=== PATIENT | female | born 1985 | race Caucasian/White ===

== ENCOUNTER → 2021-03-21 11:01 | Outpatient (CLI) | payer BC, SELFPAY ==
--- NOTE | ~2021-03-21 | XR_ITS ---
XR sacroiliac joints min 3V DATE: 03/21/2021 11:41 INDICATION: Psoriasis. Chronic bilateral hip pain. TECHNIQUE: Frontal and bilateral oblique views of the sacroiliac joints COMPARISON: None FINDINGS: No fracture or dislocation, erosive change or ankylosis. IMPRESSION: Negative sacroiliac joints Reviewed, dictated and finalized at [facility]. Reviewed, dictated and finalized at location [facility]. IMPRESSION: Negative sacroiliac joints
--- NOTE | ~2021-03-21 | XR_ITS ---
XR hand RT 2V DATE: 03/21/2021 11:42 INDICATION: Psoriasis, arthralgia TECHNIQUE: 3 views COMPARISON: None FINDINGS: No fracture or dislocation, periosteal reaction or bone destruction, erosive change or ghulam drocalcinosis. IMPRESSION: Negative Reviewed, dictated and finalized at location [facility]. IMPRESSION: Negative
--- NOTE | ~2021-03-21 | XR_ITS ---
XR hand LT 2V DATE: 03/21/2021 11:42 INDICATION: Psoriasis, arthralgia TECHNIQUE: AP, lateral, oblique views COMPARISON: None FINDINGS: No fracture or dislocation, periosteal reaction or bone destruction or erosive change. IMPRESSION: No significant abnormality Reviewed, dictated and finalized at location [facility]. IMPRESSION: No significant abnormality
--- NOTE | ~2021-03-21 | XR_ITS ---
XR knee LT 3V DATE: 03/21/2021 11:41 INDICATION: Psoriasis, arthralgia TECHNIQUE: AP, lateral, sunrise views COMPARISON: None FINDINGS: There is mild to moderate loss of medial compartment joint space. No fracture or dislocation or joint effusion, periosteal reaction or bone destruction, radiopaque int ra-articular loose body or, calcinosis. IMPRESSION: Mild to moderate loss of medial compartment joint space Reviewed, dictated and finalized at location A.
--- NOTE | ~2021-03-21 | XR_ITS ---
XR knee RT 3V DATE: 03/21/2021 11:42 INDICATION: Psoriasis, arthralgia TECHNIQUE: AP, lateral, sunrise views COMPARISON: None FINDINGS: No fracture or dislocation or joint effusion. No periosteal reaction or bone destruction, r adiopaque interarticular loose body or chondrocalcinosis. Joint spaces are relatively preserved. IMPRESSION: Negative Reviewed, dictated and finalized at location A. IMPRESSION: Negative
== END ==
PROVIDERS: Visit Provider Pediatrics Pediatric Rheumatology
DX: L40.9 Psoriasis, unspecified (principal); M25.50 Pain in unspecified joint; M54.50 Low back pain, unspecified; G89.29 Other chronic pain
CPT/HCPCS: 72202; 73120; 73562

== ENCOUNTER 2023-06-16 09:40 | Outpatient (CLI) | payer BC, SELFPAY ==
--- NOTE | ~2023-06-16 | US_ITS ---
EXAMINATION: US OB <=14 wk fetus w TV DATE: 06/16/2023 11:24 INDICATION: Establish dating of during first trimester TECHNIQUE: Real-time pelvic ultrasound utilizing both a transvaginal and transabdominal probe was pe rformed. The interpreting radiologist was not present for the study. COMPARISON: None. FINDINGS: The uterus measures 10.5 x 5.2 x 6.4 cm. There is an intrauterine gestational sac. A yolk sac and fe kristine pole are identified. The crown rump length measures 3.6 mm, which correlates with an estimated ge stational age of 6 weeks and 0 days. heart motion is identified measuring 120 beats per minute (bpm) by M-mode Doppler. The right ovary measures 2.6 x 2.6 x 2.1 cm. The left ovary measures 2.3 x 1.1 x 2.0 cm. Vascular dayanna w identified in both ovaries on color Doppler. There is no free fluid in the pelvis. IMPRESSION: 1. Single living fetus with heart rate of 120 bpm. 2. Gestational age by ultrasound of 6 weeks 0 day(s) +/- 4 day(s) with ultrasound estimated date of delivery (TAMAR) of 02/09/2024. Reviewed, dictated and finalized at location A. TECH IMPRESSION: 1. Single living fetus with heart rate of 120 bpm. 2. Gestational age by ultrasound of 6 weeks 0 day(s) +/- 4 day(s) with ultraso und estimated date of delivery (TAMAR) of 02/09/2024.
== END 2023-06-16 09:41 | disposition home or self-care (01) ==
LOC: ANHIMG 09:42
PROVIDERS: Visit Provider Obstetrics & Gynecology
DX: O26.841 Uterine size-date discrepancy, first trimester (principal); Z3A.00 Weeks of gestation of pregnancy not specified
CPT/HCPCS: 76801; 76817

== ENCOUNTER 2023-06-25 09:21 | Emergency (ER) | payer BC, SELFPAY ==
[2023-06-25 09:29] VITALS: BP 97/63; PULSE 78; RESP 18; TEMP 36.5; O2SAT 100
--- NOTE | 2023-06-25 09:40 | ED.URI ---
HPI - URI/Sore Throat General Chief Complaint: Upper Respiratory Infection Stated Complaint: FEVER/COUGH/SOB/7 WEEKS Time Seen by Provider: 06/25/23 09:40 Source: patient Mode of arrival: ambulatory Limitations: no limitations History of Present Illness HPI Narrative: 37-year-old female presents with complaint of fever, cough, fatigue, headache and body aches starting last night. Patient taking Tylenol to treat pain and fever. Patient reports that her son has had similar symptoms for the past 3-4 days. Patient states she is taking him for strep and flu swabs at noon today in a different urgent care. Patient is 7 weeks . Taking her vitamin. No complaints of abdominal cramping or vaginal bleeding. Has not had appointment with OBGYN. All systems reviewed and negative except as noted above. Related Data Home Medications Medication Instructions Recorded Confirmed mv-mn no.97-folic 180 mcg-dha 25 tablet PO 06/25/23 mg-herb no.293 25 mg chewable tablet (Alive Daily Support ) Allergies Allergy/AdvReac Type Severity Reaction Status Date / Time No Known Allergies Allergy Unverified 11/25/17 13:23 Review of Systems Review of Systems: CONSTITUTIONAL: Reports fever, chills, fatigue EYES: Denies visual changes, redness, or discharge. ENT: reports rhinorrhea, congestion, sore throat. Denies otalgia. CARDIOVASCULAR: Denies chest pain, palpitations, or edema. RESPIRATORY: reports cough. Denies dyspnea. GASTROINTESTINAL: Denies abdominal pain, nausea, vomiting, or diarrhea. GENITOURINARY: Denies dysuria or hematuria. SKIN: Denies rash or itching. MUSCULOSKELETAL: Denies back pain, joint pain. Reports myalgia. NEUROLOGIC: Denies headache, numbness, or weakness. PSYCHIATRIC: Denies anxiety or depression. All other systems reviewed are negative, except as documented in HPI. PMFSH Social History Social History Smoking status: Current every day smoker Alcohol intake: current Comments At time of signature, agree with nursing past medical, surgical, social and family history. There is no relevant family history pertinent to the presenting complaint. Exam Narrative: GENERAL: This is a well-nourished, well-developed patient, in no apparent distress. HEAD: normocephalic, atraumatic. EYES: PERRL. Sclera clear/white. Vision is grossly intact. EARS: External ears normal, auditory canals clear and without drainage, TMs normal without perforation. Hearing grossly intact. NOSE: External nose normal with mild erythema without redness or swelling to nares. THROAT: Mucous membranes moist, posterior pharynx clear. NECK: Neck supple, non-tender without lymphadenopathy, masses or thyromegaly. CARDIOVASCULAR: Regular rate and rhythm without murmurs, gallops, or rubs. RESPIRATORY: Clear to auscultation. Breath sounds equal bilaterally. No wheezes, rales, or rhonchi. SKIN: warm, Dry, intact with no suspicious lesions or rash, good texture and turgor. NEURO: awake, alert, and oriented to person, place and time. There were no obvious focal neurologic abnormalities. EXTREMITIES: No joint tenderness, effusion, or edema noted. Course Course Level of Care: Express Care Visit Vital Signs Vital signs: Vital Signs Temperature 36.5 C 06/25/23 09:29 Pulse Rate 78 06/25/23 09:29 Respiratory Rate 18 06/25/23 09:29 Blood Pressure 97/63 L 06/25/23 09:29 Pulse Oximetry 100 06/25/23 09:29 Oxygen Delivery Room Air 06/25/23 09:29 Temperature 36.5 C 06/25/23 09:29 Pulse Rate 78 06/25/23 09:29 Respiratory Rate 18 06/25/23 09:29 Blood Pressure 97/63 L 06/25/23 09:29 Pulse Oximetry 100 06/25/23 09:29 Oxygen Delivery Room Air 06/25/23 09:29 Reviewed MDM - URI/Sore Throat MDM Narrative Medical decision making narrative: negative COVID and influenza test today. Recommend patient recheck with COVID home test in 48 hours if she is co
== END 2023-06-25 10:09 | disposition home or self-care (01) ==
PROVIDERS: Emergency Provider Nurse Practitioner Family; PCP Internal Medicine
DX: O99.511 Diseases of the respiratory system complicating pregnancy, first trimester (principal); Z3A.01 Less than 8 weeks gestation of pregnancy; J06.9 Acute upper respiratory infection, unspecified; Z20.822 Contact with and (suspected) exposure to COVID-19; O99.330 Smoking (tobacco) complicating pregnancy, unspecified trimester
CPT/HCPCS: 87426; 87804; 99213; G0463

== ENCOUNTER 2023-12-12 12:35 | Outpatient (RCR) | payer BC, SELFPAY ==
[2023-12-13] MEDS: RHO(D) IMMUNE GLOBULIN 300 MCG/2 ML SYRINGE IM (14:11)
== END 2024-03-11 23:59 | disposition home or self-care (01) ==
LOC: ANHLAB 12:35
PROVIDERS: PCP Internal Medicine; Visit Provider Obstetrics & Gynecology
DX: Z29.13 Encounter for prophylactic Rho(D) immune globulin (principal); O36.0190 Maternal care for anti-D [Rh] antibodies, unspecified trimester, not applicable or unspecified; Z3A.00 Weeks of gestation of pregnancy not specified
CPT/HCPCS: 36415; 85461; 86850; 86900; 86901; 90384; 96372; J2790

== ENCOUNTER 2024-01-12 16:27 | Outpatient (CLI) | payer BC, SELFPAY ==
[2024-01-12 17:15] VITALS: BP 110/67; PULSE 72
[2024-01-12 17:17] LABS: OBXCEM ROM Plus Negative
--- NOTE | 2024-01-12 17:19 | PC.NURSE ---
Dr. Jacobson notified of patient's arrival on unit with complaints of leaking. ROM plus negative, FHT category 1 and no contractions. Okay to discharge
[2024-01-12 17:24] VITALS: BP 110/67; PULSE 70
== END 2024-01-12 17:25 | disposition home or self-care (01) ==
LOC: ANHOBOP 16:31 → ANHOBPP 16:31
PROVIDERS: PCP Internal Medicine; Visit Provider Obstetrics & Gynecology
DX: O41.8X90 Other specified disorders of amniotic fluid and membranes, unspecified trimester, not applicable or unspecified (principal); Z3A.00 Weeks of gestation of pregnancy not specified; O42.90 Premature rupture of membranes, unspecified as to length of time between rupture and onset of labor, unspecified weeks of gestation
CPT/HCPCS: 59025; 84112; 99199

== ENCOUNTER 2024-01-21 00:51 | Outpatient (RCR) | payer MEDICAID, SELFPAY ==
[2024-01-21 01:44] VITALS: BP 114/70; PULSE 74
== END 2024-03-19 09:45 | disposition home or self-care (01) ==
LOC: ANHOBOP 00:51
PROVIDERS: PCP Internal Medicine; Visit Provider Obstetrics & Gynecology
DX: O36.8130 Decreased fetal movements, third trimester, not applicable or unspecified (principal)
CPT/HCPCS: 59025

== ENCOUNTER 2024-02-09 04:24 | Inpatient (IN) | payer OTHER, SELFPAY ==
[2024-02-09] VITALS (124 sets, daily range): BP systolic 80–150; BP diastolic 42–95; PULSE 60–142; RESP 16–18; TEMP 36.1–36.8; O2SAT 96–100; BMI 27.7
--- NOTE | 2024-02-09 05:45 | LDADM ---
This patient, Amee Mccormick, was admitted to Labor/Delivery/Recovery 107 on 02/09/24 at 04:24. Plans for labor, pain management and were discussed with patient. Patient/family oriented to hospital policies and general routines including ID bracelet, bed and alarms, visiting hours, pain management, procedures, bathroom and other care routines, personal items, smoking policy, room service/diet and guest tray routines, security routines, and visiting hours. Patient/Family are encouraged to report perceived risks to care and to ask questions if they do not understand what they are told or what they should do. See OBIX for further documentation.
[2024-02-09 05:48] LABS: Basophils Percent Auto 0.2 % (0.2-1.2); Eosinophils Absolute Auto 0.1 K/mm3 (0-0.3); Hematocrit 35.1 % (37.0-47.0); Hemoglobin 12.5 g/dL (12.0-15.0); Immature Granulocyte Absolute 0.05 K/mm3 (0.00-0.031); Immature Granulocyte Percent A 0.5 % (0-0.5); Lymphocytes Absolute Auto 2.45 K/mm3 (0.9-3.2); Lymphocytes Percent Auto 24.2 % (18.3-44.2); Mean Corpuscular HGB Conc 35.6 g/dl (32-36); Mean Corpuscular Hemoglobin 32.9 pg (26-34); Mean Corpuscular Volume 92.4 fl (80-100); Mean Platelet Volume 12.3 fl (7.4-10.4); Monocytes Absolute Auto 0.9 K/mm3 (0.1-0.6); Monocytes Percent Auto 8.8 % (2.6-8.5); Neutrophils Absolute Auto 6.6 K/mm3 (1.3-6.7); Neutrophils Percent Auto 65.3 % (45.5-73.1); Platelet Count Result 118 k/mm3 (150-375); Red Cell Distribution Width 12.8 % (11.5-14.5); White Blood Count 10.1 K/mm3 (4.5-10.0)
[2024-02-09] MEDS: LACTATED RINGERS 1,000 ML 125 ML IV CONT ×2 (06:16→07:21)
[2024-02-09] MEDS: OXYTOCIN 30 UNITS/NS 500 ML 30 UNITS/500 ML BAG IV CONT (06:17)
--- NOTE | 2024-02-09 06:28 | WPDANESEPP ---
Anes - Eval Pre Procedure Procedure: labor epidural Date/Time: 02/09/24 06:28 Surgeon: robert Preop Diagnosis: pain during labor Pre Op Diagnosis: Induction of Labor Patient Data Age: 38 Gender: F Height: 1.68 m Weight: 78 kg Last Vital Signs Pulse 75 02/09/24 06:01 BP 103/56 L 02/09/24 06:01 Pulse Ox 100 02/09/24 06:26 Allergies Allergy/AdvReac Type Severity Reaction Status Date / Time No Known Allergies Allergy Verified 01/17/24 12:33 Home Medications Medication Instructions Recorded Confirmed Type mv-mn no.97-folic 180 mcg-dha 25 1 tablet PO DAILY 06/25/23 01/17/24 History mg-herb no.293 25 mg chewable tablet (Alive Daily Support ) aspirin 81 mg tablet 81 mg PO DAILY 01/17/24 01/17/24 History Laboratory Tests 02/09/24 02/09/24 05:15 05:16 WBC 10.1 H K/mm3 (4.5-10.0) RBC 3.80 L M/mm3 (4.2-5.4) Hgb 12.5 g/dL (12.0-15.0) Hct 35.1 L % (37.0-47.0) MCV 92.4 fl (80-100) MCH 32.9 pg (26-34) MCHC 35.6 g/dl (32-36) RDW 12.8 % (11.5-14.5) Plt Count 118 L k/mm3 (150-375) MPV 12.3 H fl (7.4-10.4) Immature Gran % (Auto) 0.5 % (0-0.5) Neut % (Auto) 65.3 % (45.5-73.1) Lymph % (Auto) 24.2 % (18.3-44.2) Roosevelt % (Auto) 8.8 H % (2.6-8.5) Eos % (Auto) 1.0 % (0-4.4) Baso % (Auto) 0.2 % (0.2-1.2) Lymph # (Auto) 2.45 K/mm3 (0.9-3.2) Roosevelt # (Auto) 0.9 H K/mm3 (0.1-0.6) Eos # (Auto) 0.1 K/mm3 (0-0.3) Baso # (Auto) 0.0 K/mm3 (0.0-0.1) Abs Immat Gran (auto) 0.05 H K/mm3 (0.00-0.031) Absolute Neuts (auto) 6.6 K/mm3 (1.3-6.7) Absolute Nucleated RBC 0.000 K/mm3 (0.0-0.012) Nucleated RBC % 0.0 % (0.0-0.2) RPR Pending HIV 1&2 Ab/P24 Ag 4thGn Pending Patient hx anesthesia problems: none Family hx anesthesia problems: none Results Review: All pre-operative results and documents have been reviewed as part of the pre-operative evaluation. [facility], LAT[facility] Past Medical History Medical History (Updated 02/09/24 @ 06:29 by [place] CRNA) Anxiety IUP (intrauterine ), incidental Palpitations Psoriasis Family History Family History (Updated 01/17/24 @ 12:39 by Debora Ocasio RN) Father Hypertension Other Cancer Social History Social History Smoking status: Never smoker Alcohol intake: current Substance use: never Do You Feel Safe in your Home?: Yes Lack of Transportation: No Lack of Food: Never True Current Housing: I Have Housing Concerned About Future Housing: No Difficulty Paying Gas/Electric Bills: No Difficulty Paying for Meds: No Currently Unemployed: No Education: Associate Degree Difficulty w/ Childcare or Family Care: No Spiritual care concerns: No Exam Day of Procedure 02/09/24 06:28
[2024-02-09 06:44] LABS: HIV 1/2 Ab P24 Ag Result Negative (Negative)
[2024-02-09] MEDS: ONDANSETRON INJ 4 MG/2 ML VIAL IV PUSH (07:46)
[2024-02-09 08:15] LABS: Rapid Plasma Reagin Non-Reactive (NonReactive)
--- NOTE | 2024-02-09 09:02 | WPDOBADMIT ---
Obstetrics - Admit Note Admission Note: record reviewed. Additions to the history and/or subsequent changes in the physical findings follow. 38 y/o at 39 5/7 weeks who had initially been scheduled for induction of labor today, but she had leakage of yellow fluid starting at 0300. SROM confirmed, with meconium stained fluid. GBS neg. Gestational thrombocytopenia, mild. AVSS NST reactive TOCO: contractions every 2-4 min ABD soft, nontender, gravid, vertex EXT nontender Cervix 4/50/-2. AROM of forebag with meconium-stained fluid. IUPC placed. Vertex. A: IUP at term with SROM, meconium. Gestational thrombocytopenia. P: Augment labor with oxytocin. Anticipate . Peds aware of meconium.
--- NOTE | 2024-02-09 13:01 | PM.OBPRVD ---
OB - Vaginal Delivery Note Procedure Delivery date: 02/09/24 Events: Other (SROM; gestational thrombocytopenia) Induction method: None Delivery augmentation: Pitocin Delivery monitor: External FHT, External Uterine and Internal Uterine Route of delivery: Episiotomy description: None Laceration Description: Periurethral and Perineal - 2nd Degree Delivery repair: vicryl (3-0) Specimen: Yes (cord blood) Quantitative Blood Loss (ml): 120 Anesthesia type: Epidural Disposition: PACU Complications: None Narrative: 38 y/o at 39 5/7 weeks gestation who presented to the hospital after leakage of yellow fluid. SROM with meconium-staining was diagnosed. She was admitted. Oxytocin was administered intravenously for labor augmentation. She received an epidural for pain control. Her labor progressed and her cervix dilated completely. She pushed with good effort and delivered the 's head to the perineum. A loose nuchal cord was splinted and the body delivered. The cord was reduced. The nose and mouth were bulb suctioned. After a delay, the cord was clamped and cut. The infant was handed off the field. Cord blood was collected. The placenta delivered spontaneously and was grossly normal in appearance. The usual 3 vessel cord was noted. A second degree midline perineal laceration was sustained. This was reapproximated using 3 0 Vicryl in the usual layered fashion. Bilateral periurethral lacerations, as well as a left labial laceration along a prior scar line, were reapproximated with figure of eight sutures of the same material. Excellent hemostasis resulted as did excellent reapproximation of the normal anatomy. Needle and instrument counts were correct. The patient was taken to recovery room in stable condition. The infant went to the nursery in stable condition. I was present and scrubbed for the entire delivery. Baby Date of : 02/09/24 Time of : 12:35 Gestational Age by Date: 39 Infant gender: Male Weight (pounds): 7 Weight (ounces): 9 presentation: vertex position: Left Occiput Anterior Placenta delivery description: Spontaneous and Normal Configuration Cord Vessel Description: 3 Vessels, Nuchal Cord and True Knot score one minute: 9 score five minutes: 9
[2024-02-09] MEDS: OXYTOCIN 30 UNITS/NS 500 ML 30 UNITS/500 ML BAG 125 UNITS IV CONT (13:05)
--- NOTE | 2024-02-09 13:05 | PM.OBDSVD ---
DS: Admitting Diagnosis Discharge Date 02/10/24 Admitting Diagnosis IUP at 39 5/7 weeks Gestational thrombocytopenia SROM DS: Discharge Diagnosis Discharge Diagnosis (1) (normal spontaneous vaginal delivery): Code(s): O80 - Encounter for full-term uncomplicated delivery Status: Acute (2) Gestational thrombocytopenia: Code(s): O99.119 - Other diseases of the blood and blood-forming organs and certain disorders involving the immune mechanism complicating , unspecified trimester; D69.6 - Thrombocytopenia, unspecified Status: Acute OB - DS: Summary OB Procedures : None OB Procedures Intrapartum: Spontaneous Vag Delivery OB Procedures: : None Peripartum Data Laceration Description: Periurethral and Perineal - 2nd Degree Episiotomy description: None Time Spent with Patient Time attestation: Total time spent providing and/or coordinating discharge services: DS: Data Data Completed and Pending Labs on day of discharge: Labs from last 24 hours 02/09/24 02/09/24 05:16 05:15 WBC 10.1 H RBC 3.80 L Hgb 12.5 Hct 35.1 L MCV 92.4 MCH 32.9 MCHC 35.6 RDW 12.8 Plt Count 118 L MPV 12.3 H Immature Gran % (Auto) 0.5 Neut % (Auto) 65.3 Lymph % (Auto) 24.2 Runnels % (Auto) 8.8 H Eos % (Auto) 1.0 Baso % (Auto) 0.2 Lymph # (Auto) 2.45 [place]unnels # (Auto) 0.9 H Eos # (Auto) 0.1 Baso # (Auto) 0.0 Abs Immat Gran (auto) 0.05 H Absolute Neuts (auto) 6.6 Absolute Nucleated RBC 0.000 Nucleated RBC % 0.0 RPR Non-reactive HIV 1&2 Ab/P24 Ag 4thGn Negative Blood Type AB Negative Antibody Screen Positive Antibody Identification Inconclusive Antigen Identification TNP MARIETTA, IgG Interpret Neg MARIETTA, Poly Interpret TNP MARIETTA, Complement Interp Negative Discharge Plan Discharge Attending physician on discharge: Jensen Jacobson Discharging Clinician: Jensen Jacobson Patient Disposition: Home, Self-Care Activity: pelvic rest Diet: regular Discharge Instructions: Call or return if temperature above 100.4? F, increased abdominal pain, increased vaginal bleeding or any new problems. Stand Alone Forms: General Discharge Information Follow-up/Referrals: Jensen Jacobson MD [Physician] - 6 Weeks Discharge Medications: New ibuprofen 600 mg tablet 600 mg PO Q6H PRN (Reason: cramps) Qty: 30 0RF hydrocodone-acetaminophen 5-325 mg tablet 1 tablet PO Q6H PRN (Reason: pain) Qty: 15 0RF Continued Alive Daily Support 180 mcg-25 mg- 25 mg Tablet,Chewable 1 tablet PO DAILY Discontinued aspirin 81 mg Tablet 81 mg PO DAILY Date of admission: 02/09/24 04:24 Primary Care Provider: Tino,Matty Nobles Admitting Provider: Jensen Jacobson Attending physician on admission: Jensen Jacobson Condition: Stable
[2024-02-09] MEDS: BENZOCAINE 20% AER SPR (*SP) 56 GM CAN 1 SPRAY TOPICAL (14:32)
[2024-02-09] MEDS: WITCH HAZEL 40 PADS 1 PAD TOPICAL (14:32)
--- NOTE | 2024-02-09 15:20 | OBPPTRN ---
Patient transferred to post room #291 via wheelchair. Support person present. Oriented to unit, room, information board, rooming in, admission packet and security measures. Patient verbalizes understanding.
[2024-02-09] MEDS: IBUPROFEN 600 MG TABLET PO (16:37)
--- NOTE | 2024-02-09 17:54 | PC.NURSE ---
0660. Consulted with patient to assess needs related to . Discussed with mother her BF history with her 1st born, she nursed him 7months and reported she had some struggles at the beginning with him We reviewed working with the , supporting breast, protecting her nipples with an optimal deep latch, good positioning, and good hand washing. Encouraged understanding the benefits of skin to skin, responding to feeding cues, frequencies of feeding 10-12 times in 24 hours (approximately 2-3 hours), duration of feedings, milk production, intake/output feeding sheet and signs of adequate intake encouraging swallowing at the breast. Reviewed positioning and alignment, supporting breast, off-centered (asymmetrical latch) and leading with the chin with big, open, wide gape. latched optimally to the [left] breast in [cross cradle] position. Infant was curling his lower lip under and did not have a wide enough angle of the mouth at first. Reviewed with mom how to help infant get a deeper latch >140 degrees and ensure the lips are flanged out. Education given to the mother of how to visualize the suckling (with good rocking jaw motion) swallows (dropping of the lower jaw) and how to listen for drinking at the breast (the ka sound). The was [able] to maintain latch without discomfort to mother. Nipple care reviewed with optimal latch, good positioning and using clean hands when touching her breast. Resources used to facilitate learning were used from the mom and baby guide. Mother voiced understanding of the education shared, to call for assistance if the infant does not latch or if there is discomfort with . Reported to the Primary RN.
--- NOTE | 2024-02-09 18:45 | PC.NURSE ---
PT introductions made and plan of care discussed per post , pain management, breast feeding, daily care activities. PT and spouse both recipients of such instructions and no barriers to learning identified at this time. PT received such instructions per one to one discussion, mom baby care guide and demonstrations. PT verbalized understanding of such care.
[2024-02-09] MEDS: DOCUSATE SODIUM 100 MG CAPSULE PO (19:35)
[2024-02-09] MEDS: POLYSACCHARIDE IRON COMPLEX 150 MG CAPSULE PO (19:35)
[2024-02-09] MEDS: ACETAMINOPHEN 325 MG TABLET 650 MG PO (19:37)
[2024-02-10] MEDS: IBUPROFEN 600 MG TABLET PO ×2 (00:54→11:55)
[2024-02-10 00:55] VITALS: BP 99/56; PULSE 58; RESP 16; TEMP 36.6; O2SAT 99
[2024-02-10 05:45] LABS: Hemoglobin 10.8 g/dL (12.0-15.0)
[2024-02-10 07:20] VITALS: BP 107/54; PULSE 63; RESP 16; TEMP 36.6; O2SAT 99
[2024-02-10] MEDS: ACETAMINOPHEN 325 MG TABLET 650 MG PO ×2 (07:37→15:31)
[2024-02-10] MEDS: DOCUSATE SODIUM 100 MG CAPSULE PO (07:37)
[2024-02-10] MEDS: MULTIVIT/MIN/PREN/FOL AC/IRON TABLET 1 TAB PO (07:37)
[2024-02-10] MEDS: WITCH HAZEL 40 PADS 1 PAD TOPICAL (07:38)
[2024-02-10] MEDS: BENZOCAINE 20% AER SPR (*SP) 56 GM CAN 1 SPRAY TOPICAL (07:38)
--- NOTE | 2024-02-10 08:01 | WPDANLDPN2 ---
Anes-Prog Note L&D Date/Time: 02/10/24 08:01 Comfortable throughout: labor and delivery Neuraxial method: epidural Epidural/Spinal procedure site: clean & non-tender Neuro status: Neuro function grossly intact. Cardiovascular status: normal Respiratory status: normal Airway patency: baseline Mental status: baseline Post-Op hydration status: normal Vital Signs: Last Vital Signs Temp 36.6 C 02/10/24 00:55 Pulse 58 L 02/10/24 00:55 Resp 16 02/10/24 00:55 BP 99/56 L 02/10/24 00:55 Pulse Ox 99 02/10/24 00:55 O2 Del Method Room Air 02/09/24 19:00 Pain score (VAS): 0/10 I/O: Intake & Output 02/09/24 02/10/24 02/10/24 23:59 07:59 15:59 Intake Total 500 Balance 500 Post-procedural complaints: none Patient feedback: Patient satisfied with anesthetic care.
--- NOTE | 2024-02-10 10:45 | PC.NURSE ---
Consulted with patient to assess needs related to . Discussed with mother her successes, concerns and any questions she has. We reviewed working with the , supporting breast, protecting her nipples with an optimal deep latch, good positioning. Encouraged understanding the benefits of skin to skin, responding to feeding cues, frequencies of feeding 8-12 times in 24 hours (approximately 2-3 hours), duration of feedings, and waking to feed. Reviewed positioning and alignment, supporting breast, off-centered (asymmetrical latch) and leading with the chin with big, open, wide gape. Infant was unable to latch to the breast in cross cradle position. He was very sleepy and gave a few tries at opening his mouth but didn't latch. Advised giving baby another half hour, either wrapped in the crib of up and down on mom's chest skin to skin. Mother voiced understanding of the education shared, to call for assistance if the infant does not latch or if there is discomfort with . Reported to the Primary RN.
[2024-02-10 12:01] VITALS: BP 106/66; PULSE 63; RESP 16; TEMP 36.6; O2SAT 99
--- NOTE | 2024-02-10 13:16 | PM.OBPNVD ---
OB - PN: Subj Subjective Date/time seen: 02/10/24 13:16 Narrative: Pain OK. Would like circumcision for son. Would like to go home. OB - PN: Obj Data Labs 02/10/24 04:33 Labs: Laboratory Results - last 24 hr 02/10/24 04:33 Hgb 10.8 L Hct 31.0 L Blood Type AB Negative Antibody Screen Negative Screen Negative Baby's Blood Type Ab pos Baby's MARIETTA Positive Doses of RhIg Required 1 OB - PN A/P Plan day: 1 Comments: A: PPD#1, doing well. P: Reviewed circ. Home to f/u 6 weeks. Exam Psych: Other: AVSS ABD soft, nontender, fundus firm EXT nontender
[2024-02-10] MEDS: INFLUENZA TRIVALENT VACCINE 45 MCG/0.5 ML SYRINGE IM (15:22)
[2024-02-10] MEDS: RHO(D) IMMUNE GLOBULIN 300 MCG/2 ML SYRINGE IM (15:22)
--- NOTE | 2024-02-10 17:00 | PC.NURSE ---
1645- Attempted to latch baby without success. Patient is being discharged and baby hasn't fed since the circumcision. Mom has been trying off and on. We undressed him, used a wet wipe, and tried for 10-15 minutes without much effort from baby at all. Encouraged mom to wait a half hour and then go through a diaper change to see if that would assist with waking baby. Mom is very determined to breastfeed, and we will check a blood sugar if baby won't eat in a half hour. 1700- Dad came to the desk after about ten minutes and said baby was going to town at the breast. Reported this to primary RN. Patient has the mom/baby guide for reference and outpatient resource at home.
[2024-02-11 10:44] VITALS: BP 111/66; PULSE 81; RESP 18; TEMP 36.9; O2SAT 99
== END 2024-02-10 17:15 | disposition home or self-care (01) | DRG 807 ==
LOC: ANHLDR 13:06 → ANHOB2 15:30
PROVIDERS: Admitting Provider Obstetrics & Gynecology; PCP Internal Medicine; Visit Provider Obstetrics & Gynecology
DX: O99.12 Other diseases of the blood and blood-forming organs and certain disorders involving the immune mechanism complicating childbirth (principal); Z37.0 Single live birth; Z3A.39 39 weeks gestation of pregnancy; D69.6 Thrombocytopenia, unspecified; O69.81X0 Labor and delivery complicated by cord around neck, without compression, not applicable or unspecified; Z23 Encounter for immunization; O70.1 Second degree perineal laceration during delivery; O77.0 Labor and delivery complicated by meconium in amniotic fluid
CPT/HCPCS: 36415; 85014; 85018; 85025; 85461; 86592; 86703; 86850; 86880; 86900; 86901; 86902; 90384; 90471; 90656; A9270; G0008; G0432; J2405; J2590; J2790; J2795; J7120